=== PATIENT | female | born 1965 | race Two or more races ===

== ENCOUNTER 2016-10-22 19:45 | Emergency (ER) | payer MEDICAID, OTHER ==
[~2016-10-22] VITALS: Ht 167.6 cm; Wt 81.6 kg
--- NOTE | 2016-10-22 19:50 | NUR ---
PT BIB [facility] C/O L ARM AND L FOOT REDNESS AND RASH. PT WAS SEEN IN ANOTHER ER EARLIER TODAY FOR THE SAME COMPLAINT AND WAS DIAGNOSED WITH SPIDER BITE, AND DISCHARGED WITH PREDNISONE AND BENDRYL. PT DID NOT TAKE EITHER MEDICATION. RESP EVEN UNLABORED. SKIN WARM NONDIAPHORETIC. VSS. FAMILY IS CONCERNED "IT MIGHT BE SEPSIS". NO SIGNS OR SYMPTOMS OF SEPSIS NOTED. IN ER BED 11.
[2016-10-22 20:15] LABS: BASOPHILS % (AUTO) 0.4 % (0.0-2.0); EOSINOPHILS # (AUTO) 0.1 /CMM (0.0-0.7); EOSINOPHILS % (AUTO) 1.3 % (0.0-6.0); HEMATOCRIT 40 % (33-45); HEMOGLOBIN 13.4 g/dL (11.5-14.8); LYMPHOCYTES # (AUTO) 2.4 /CMM (0.8-4.8); LYMPHOCYTES % (AUTO) 30.5 % (20.0-44.0); MEAN CORPUSCULAR HEMOGLOBIN 31 PG (26.0-33.0); MEAN CORPUSCULAR HGB CONC 33 g/dl (31.0-36.0); MEAN CORPUSCULAR VOLUME 92 fL (82-100); MONOCYTES # (AUTO) 0.5 /CMM (0.1-1.30); MONOCYTES % (AUTO) 6.7 % (2.0-12.0); NEUTROPHILS # (AUTO) 4.9 /CMM (1.8-8.9); NEUTROPHILS % (AUTO) 61.1 % (43.0-81.0); PLATELET COUNT (AUTO) 217 /CMM (150-450); RDW COEFFICIENT OF VARIATION 12.2 (11.5-15.0); WHITE BLOOD COUNT (AUTO) 7.9 K/uL (4.3-11.0)
[2016-10-22] MEDS ORDERED: diphenhydrAMINE HCL 25 MG CAPSULE ONE (20:22)
[2016-10-22] MEDS ORDERED: predniSONE 20 MG TABLET ONE (20:22)
[2016-10-22 20:24] LABS: CALCIUM, SERUM 9.3 mg/dL (8.5-10.1); CREATININE 0.8 mg/dL (0.6-1.3)
[2016-10-22 20:27] LABS: POTASSIUM 2.6 mmol/L (3.5-5.1)
[2016-10-22] MEDS ORDERED: predniSONE 20 MG TABLET PO ONE (20:30)
[2016-10-22] MEDS ORDERED: diphenhydrAMINE HCL 25 MG CAPSULE PO ONE (20:30)
[2016-10-22] MEDS ORDERED: POTASSIUM CHLORIDE 20 MEQ TAB.PRT.SR PO ONE ×2 (20:58→21:00)
[2016-10-22 21:08] VITALS: BP 104/78
== END 2016-10-22 21:11 | disposition home or self-care (01) ==
LOC: ER 19:46
DX: T78.40XA Allergy, unspecified, initial encounter (principal); R21 Rash and other nonspecific skin eruption; I10 Essential (primary) hypertension; E03.9 Hypothyroidism, unspecified; Z91.013 Allergy to seafood
CPT/HCPCS: 36415; 80048; 85025; 99284; A4606; J7512; Q0163; Z7610